=== PATIENT | female | born 1945 | race Caucasian/White ===

== ENCOUNTER → 2017-03-14 | Outpatient (CLI) | payer MEDICARE ==
--- NOTE | 2017-03-14 16:13 | Diagnostic Imaging Report ---
KUB. INDICATION: Left-sided abdominal pain. COMPARISON: 03/05/14. FINDINGS: There is an IVC filter seen. It appears similar to the prior exam. Nonspecific calcifications in the upper left abdomen are seen which could be vascular. Moderate amount of fecal material is seen in the colon. No definitive urinary tract stone is identified. A tube projects over the lower abdomen presumably related to a suprapubic catheter. IMPRESSION: Tube projecting over the lower abdomen may relate to a suprapubic catheter. No obvious urinary tract stone is seen. Dictated by: Dictated on workstation # [id number]
== END ==
LOC: RAD 13:55
PROVIDERS: ATTEND Urology
DX: N39.0 Urinary tract infection, site not specified (principal); Z87.442 Personal history of urinary calculi
CPT/HCPCS: 74000

== ENCOUNTER → 2018-07-11 | Outpatient (CLI) | payer MEDICARE ==
--- NOTE | 2018-07-11 17:16 | Diagnostic Imaging Report ---
INDICATION: Urinary retention. TECHNIQUE: Single supine view of the abdomen at 2:36 PM CORRELATION STUDY: 03/14/2017 FINDINGS: Mild to moderate amount of overlying bowel gas and stool is present. Bowel gas pattern appears unremarkable. Inferior vena cava filter is noted in the right paraspinal region. Vascular calcification noted. No appreciable calcification in the renal silhouettes and/or expected course of the ureter. Catheter tubing projects over the lower left hemipelvis. While nonspecific, may be reflective of underlying suprapubic catheter. IMPRESSION: 1. Nonobstructing bowel gas pattern. Tubing over left hemipelvis, nonspecific, could be reflective of underlying suprapubic catheter. Clinical correlation is recommended. Dictated by: Dictated on workstation # [id number]
== END ==
LOC: RAD 14:05
PROVIDERS: ATTEND Urology
DX: R33.9 Retention of urine, unspecified (principal)
CPT/HCPCS: 74018

== ENCOUNTER → 2018-09-06 | Outpatient (CLI) | payer MEDICARE | LOC: CARD 12:58 | PROVIDERS: ATTEND Internal Medicine Interventional Cardiology | DX: R00.2 Palpitations (principal); E78.5 Hyperlipidemia, unspecified | CPT/HCPCS: 93306 ==

== ENCOUNTER → 2019-02-02 | Outpatient (CLI) | payer MEDICARE | LOC: CARD 09:19 | PROVIDERS: ATTEND Internal Medicine Interventional Cardiology | DX: R00.2 Palpitations (principal) | CPT/HCPCS: 93225; 93226 ==

== ENCOUNTER 2019-02-05 08:34 | Outpatient (RCR) | payer MEDICARE | END 2019-05-06 | disposition home or self-care (01) | LOC: CARD 08:34 | PROVIDERS: ATTEND Internal Medicine Interventional Cardiology | DX: R00.2 Palpitations (principal) ==

== ENCOUNTER → 2020-05-28 | Outpatient (CLI) | payer MEDICARE ==
--- NOTE | 2020-05-28 13:22 | Diagnostic Imaging Report ---
PROCEDURE: CT abdomen and pelvis without contrast. TECHNIQUE: Multiple contiguous axial images were obtained through the abdomen and pelvis without the use of intravenous contrast. Auto Exposure Controls were utilized during the CT exam to meet ALARA standards for radiation dose reduction. INDICATION: Right flank pain and hematuria. Patient does have history of kidney stones. COMPARISON: No prior CT studies are available for comparison. FINDINGS: The lung bases demonstrate a tiny approximately 3 mm nodule in the right lower lobe, indeterminate. A circumscribed low attenuation lesion in the right lobe of the liver anteriorly measures 9 mm. This is too small to characterize but may represent a small cyst. The gallbladder is unremarkable. There is no biliary ductal dilatation. The pancreas and spleen are unremarkable. No adrenal mass is detected. The right kidney contains a tiny calcific density in the lower pole. No ureteral calculi or hydronephrosis is identified. There appears to be a large solid-appearing mass involving the left kidney upper pole projecting laterally measuring 4.5 cm cephalocaudal x 5.4 cm AP x 5.0 cm transverse. There is no hydronephrosis. The left ureter is unremarkable. The patient appears to have a suprapubic catheter decompressing the bladder. The aorta is heavily calcified but nonaneurysmal. There is a filter in the IVC. The small and large bowel loops are of normal caliber. There is no obstruction. No free fluid or fluid collection is identified. The bony structures demonstrate a sacral cyst. No definite osteolytic lesions are seen. IMPRESSION: 1. Right lower lobe pulmonary micronodule measuring 3 mm in size. 2. Tiny nonobstructing right renal calculus. 3. Solid left renal mass, suspicious for renal cell carcinoma. No definite lymphadenopathy is detected. Dictated by: Dictated on workstation # [id number]
--- NOTE | 2020-05-28 14:55 | Diagnostic Imaging Report ---
INDICATION: Recent previous right-sided pain, improved today. TECHNIQUE: Single supine view of the abdomen at 12:29 PM. CORRELATION STUDY: 07/11/2018. FINDINGS: The inferior vena cava filter remains in place in the right paramediastinal region at the L1-L2 level. Gas-filled loops of bowel are present with a nonobstructed appearance. Catheter tubing remains projected just above the level of the pubic symphysis, likely a suprapubic catheter. The bowel gas pattern has a relatively nonobstructed appearance. No definitive pathologic intra-abdominal calcifications. IMPRESSION: Generally stable examination of the abdomen. Nonobstructed appearing bowel gas pattern. Dictated by: Dictated on workstation # [id number]
== END ==
LOC: RAD 12:13
PROVIDERS: ATTEND Urology
DX: N39.0 Urinary tract infection, site not specified (principal); N28.89 Other specified disorders of kidney and ureter; R91.8 Other nonspecific abnormal finding of lung field; Z87.442 Personal history of urinary calculi
CPT/HCPCS: 74018; 74176

== ENCOUNTER → 2020-06-03 | Outpatient (CLI) | payer MEDICARE ==
[~2020-06-03] MED LIST: CATHETER FLUSH 10 ML SYR IV PRN; HOLD METFORMIN - RECEIVED CONTRAST 20 ML VIAL IV SCH; IOHEXOL 350 MG/ML 100 ML (OMNIPAQUE 350) VIAL IV ONE; NS 100 ML (IVPB) BAG IV ONE
[2020-06-03 09:59] LABS: CREATININE SERUM 0.95 MG/DL (0.60-1.30)
--- NOTE | 2020-06-03 13:35 | Diagnostic Imaging Report ---
PROCEDURE: CT abdomen with and without contrast. TECHNIQUE: Multiple contiguous axial CT images of the abdomen were obtained prior to and after intravenous administration of iodinated contrast. Auto Exposure Controls were utilized during the CT exam to meet ALARA standards for radiation dose reduction. INDICATION: Follow-up left kidney. COMPARISON: 05/28/2020. FINDINGS: Stable nodule in the right lung base measuring 3 mm. The heart size is normal. A small hiatal hernia is seen. Redemonstration of the mass in the mid left kidney measuring 4.5 x 5.4 x 5.0 cm and demonstrating mild peripheral enhancement. Dense material is seen within the mass that may represent blood products. No evidence of thrombosis within the left renal vein. Stable nonobstructing calculus in the right kidney measuring 2 mm. No obstructing calculi or hydronephrosis. Multiple areas of cortical thinning are visualized in the kidneys bilaterally, likely representing prior sequelae of infection or infarction. No acute abnormalities are seen in the liver, spleen, pancreas, and adrenal glands. The gallbladder is unremarkable. IVC filter is in place. No pathologically enlarged lymphadenopathy is seen in the chest. The included bowel loops are nondistended. No acute abnormalities are seen in the osseous structures. IMPRESSION: 1. Redemonstration of the left renal mass which demonstrates mild peripheral enhancement. The dense material seen within the central portion of the mass is unchanged on contrast images and likely represents blood products. These findings remain suspicious for renal cell carcinoma. 2. Nonobstructing calculus in the right kidney measuring 2 mm. No obstructing calculi or hydronephrosis. 3. Stable nodule in the right lung base measuring 3 mm. 4. Small hiatal hernia. Dictated by: Dictated on workstation # [id number]
== END ==
LOC: RAD 09:33
PROVIDERS: ATTEND Urology
DX: N20.0 Calculus of kidney (principal); K44.9 Diaphragmatic hernia without obstruction or gangrene; R91.1 Solitary pulmonary nodule; N28.89 Other specified disorders of kidney and ureter
CPT/HCPCS: 36415; 74170; 82565; 84520

== ENCOUNTER → 2021-04-21 | Outpatient (CLI) | payer MEDICARE ==
[2021-04-21 08:16] LABS: HEMATOCRIT 41 % (35-52); HEMOGLOBIN 13.2 g/dL (11.5-16.0); MEAN CORPUSCULAR HEMOGLOBIN 30 pg (25-34); MEAN CORPUSCULAR HGB CONC 32 g/dL (32-36); MEAN CORPUSCULAR VOLUME 94 fL (80-99); MEAN PLATELET VOLUME 10.9 fL (9.0-12.2); PLATELET COUNT 238 10^3/uL (130-400); WHITE BLOOD COUNT 6.5 10^3/uL (4.3-11.0)
[2021-04-21 08:32] LABS: ALBUMIN 4.2 GM/DL (3.2-4.5); BILIRUBIN,TOTAL 0.6 MG/DL (0.1-1.0); CALCIUM 9.2 MG/DL (8.5-10.1); CREATININE SERUM 1.37 MG/DL (0.60-1.30); POTASSIUM 3.9 MMOL/L (3.6-5.0); TOTAL PROTEIN 6.9 GM/DL (6.4-8.2)
--- NOTE | 2021-04-21 09:21 | Diagnostic Imaging Report ---
EXAMINATION: CT chest, abdomen and pelvis without intravenous contrast. TECHNIQUE: Multiple contiguous axial images were obtained through the chest, abdomen and pelvis without intravenous contrast. All CT scans use one or more of the following dose optimizing techniques: automated exposure control, MA and/or KvP adjustment based on patient size and exam type or iterative reconstruction. HISTORY: Renal stones. COMPARISON: 06/03/2020 FINDINGS: There is no edema or pneumonia. No pleural effusion. No pneumothorax. There is a 17 x 10 mm groundglass nodule in the left upper lobe. There is no axillary or supraclavicular lymphadenopathy. There is no mediastinal lymphadenopathy. There is a low attenuating intermediastinal lesion measuring 2.0 x 4.0 cm. Heart size is normal. There are moderate coronary artery calcifications. No pericardial effusion. Aorta is normal in caliber. 10 mm low attenuating lesion in segment 4A liver is likely a cyst and unchanged. No other liver lesions are seen. There is no biliary ductal dilation. Gallbladder is normal. Pancreas is normal. Spleen is normal. Adrenal glands are normal. Right kidney is normal without focal lesion. Left kidney is surgically absent. There is no hydronephrosis. Urinary bladder is decompressed by suprapubic catheter. Visualized bowel is normal in caliber without obstruction or inflammation. There is an inferior vena cava filter. No free fluid or air. No abdominal or pelvic lymphadenopathy. Aorta is atherosclerotic but nonaneurysmal. There are no suspicious osseous lesions. 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 IMPRESSION: 1. 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 2. 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 Attention on follow-up is recommended. 3. Groundglass nodule in the left upper lobe measuring [address] at 6-12 months is recommended to confirm persistence followed by CT every two years until five years have elapsed according to Fleischner Society guidelines. Dictated by: Dictated on workstation # [id number]
== END ==
LOC: RAD 07:59
PROVIDERS: ATTEND Urology
DX: J98.59 Other diseases of mediastinum, not elsewhere classified (principal); R91.1 Solitary pulmonary nodule; Z90.5 Acquired absence of kidney; Z87.442 Personal history of urinary calculi
CPT/HCPCS: 36415; 71250; 74176; 80053; 85027